=== PATIENT | female | born 1935 | race African-American/Black ===

== ENCOUNTER 2017-05-30 18:50 | Inpatient (IN) | payer BC, MEDICARE ==
[~2017-05-30] VITALS: Ht 157.5 cm; Wt 46.7 kg
[2017-05-30] MEDS ORDERED: SODIUM CHLORIDE 0.9% 1,000 ML IV ONE (21:22)
[2017-05-30] MEDS ORDERED: ONDANSETRON HCL 4MG/2ML VIAL IV STA (21:22)
[2017-05-30] MEDS ORDERED: MORPHINE SULFATE 4 MG/ML CPJ (NOT FOR IM USE) IV STA (21:22)
[2017-05-30 21:55] LABS: EOSINOPHILS % 0.2 % (0.0-5.0); HEMATOCRIT. 35.6 % (36.0-48.0); HEMOGLOBIN. 12.1 g/dL (12.0-16.0); LYMPHOCYTES % 12.3 % (20.0-50.0); MEAN CORPUSCULAR HEMOGLOBIN 30.5 pg (28.0-32.0); MEAN CORPUSCULAR VOLUME 90.1 fL (81.0-99.0); MEAN PLATELET VOLUME 10.2 fl (7.4-10.4); MONOCYTES % 9.9 % (2.0-8.0); NEUTROPHILS % 76.6 % (40.0-76.0); PLATELET 220 x1000/uL (130-400); RED BLOOD CELL COUNT 3.95 mill/uL (4.2-5.4)
[2017-05-30 21:59] LABS: INR 1.1; PARTIAL THROMBOPLASTIN TIME 27.9 sec (23.4-31.0); PROTHROMBIN TIME 11.9 sec (9.4-11.6)
[2017-05-30 22:02] LABS: CARBON DIOXIDE 28 mEq/L (21-32); CHLORIDE 91 mEq/L (98-107)
[2017-05-30] MEDS ORDERED: POTA10TA15 PO (22:28)
[2017-05-30] MEDS ORDERED: AMLO5TAB4 PO (22:28)
[2017-05-30] MEDS ORDERED: TRIA1TAB92 PO (22:28)
[2017-05-30] MEDS ORDERED: ALPR0.5T PO (22:28)
[2017-05-30] MEDS ORDERED: TRAM50TA3 PO (22:28)
[2017-05-30] MEDS ORDERED: MORPHINE SULFATE 10 MG/ML CPJ IV NR (22:30)
[2017-05-30] MEDS ORDERED: CEFTRIAXONE 1 G PREMIX 50 ML IV ONE (23:30)
[2017-05-31 01:26] LABS: CLARITY URINE CLOUDY (CLEAR); COLOR URINE YELLOW (YELLOW); GLUCOSE URINE NEGATIVE (NEGATIVE); KETONES URINE NEGATIVE (NEGATIVE); LEUKOCYTE ESTERASE URINE 3+ (NEGATIVE); NITRITE URINE NEGATIVE (NEGATIVE); OCCULT BLOOD URINE 2+ (NEGATIVE); PH URINE 6.5 (4.5-8.0); PROTEIN URINE 1+ (NEGATIVE); SPECIFIC GRAVITY URINE 1.013 (1.005-1.030); UROBILINOGEN URINE 0.2 E.U./dL (0.2-1.0)
[2017-05-31 05:21] VITALS: BP 113/70
[2017-05-31 08:00] VITALS: BP 117/73
[2017-05-31] MEDS ORDERED: SODIUM CHLORIDE 0.9% 1,000 ML IV SCH (09:00)
[2017-05-31] MEDS: ENOXAPARIN 30MG/0.3ML SYR SUBCUT SCH (09:15)
[2017-05-31 09:49] LABS: HEMATOCRIT 29.6 % (36.0-48.0); HEMOGLOBIN 9.7 g/dL (12.0-16.0); MEAN CORPUSCULAR HEMOGLOBIN 29.8 pg (28.0-32.0); MEAN CORPUSCULAR VOLUME 90.9 fL (81.0-99.0); PLATELET 163 x1000/uL (130-400); RED BLOOD CELL COUNT 3.26 mill/uL (4.2-5.4)
[2017-05-31] MEDS ORDERED: LACTULOSE 20G/30ML UDC PO PRN (10:30)
[2017-05-31 12:00] VITALS: BP 103/63
[2017-05-31 12:23] VITALS: BP 120/66
[2017-05-31] MEDS: SODIUM CHLORIDE 0.9% 1,000 ML IV SCH (15:30)
[2017-05-31] MEDS: CEFTRIAXONE 1 G PREMIX 50 ML IV SCH (15:36)
[2017-05-31 15:55] LABS: *AMPHETAMINES SCREEN URINE NEGATIVE (NEGATIVE); *BARBITURATES SCREEN URINE NEGATIVE (NEGATIVE); *BENZODIAZEPINES SCREEN URINE PRESUMTIVE POSITIVE (NEGATIVE); *COCAINE SCREEN URINE NEGATIVE (NEGATIVE); CANNABINOID URINE SCREEN NEGATIVE (NEGATIVE); METHADONE URINE SCREEN NEGATIVE (NEGATIVE); OPIATES URINE SCREEN PRESUMTIVE POSITIVE (NEGATIVE); PHENCYCLIDINE URINE SCREEN NEGATIVE (NEGATIVE)
[2017-05-31 16:00] VITALS: BP 95/69
[2017-05-31 16:55] LABS: CREATINE KINASE 90 IU/L (26-192)
[2017-05-31 20:00] VITALS: BP 109/60
[2017-05-31 22:17] LABS: TOTAL IRON BINDING CAPACITY 179 ug/dL (250-450)
[2017-05-31 22:38] LABS: HAPTOGLOBIN 220 mg/dL (30-200)
[2017-05-31 22:45] LABS: VITAMIN B12 SERUM 1226 pg/mL (211-911)
[2017-05-31 23:01] LABS: FERRITIN 214 ng/mL (10-291)
[2017-06-01] VITALS (13 sets, daily range): BP systolic 99–137; BP diastolic 60–80
[2017-06-01] MEDS: SODIUM CHLORIDE 0.9% 1,000 ML IV SCH ×3 (02:51→20:40)
[2017-06-01 06:21] LABS: BASOPHILS % 1.2 % (0.0-2.0); EOSINOPHILS % 1.7 % (0.0-5.0); HEMATOCRIT. 28.5 % (36.0-48.0); HEMOGLOBIN. 9.5 g/dL (12.0-16.0); LYMPHOCYTES % 12.4 % (20.0-50.0); MEAN CORPUSCULAR HEMOGLOBIN 30.9 pg (28.0-32.0); MEAN CORPUSCULAR VOLUME 92.2 fL (81.0-99.0); MEAN PLATELET VOLUME 10.5 fl (7.4-10.4); MONOCYTES % 9.7 % (2.0-8.0); PLATELET 156 x1000/uL (130-400); RED BLOOD CELL COUNT 3.09 mill/uL (4.2-5.4); RED CELL DISTRIBUTION WIDTH 15.2 % (11.6-14.6)
[2017-06-01 06:52] LABS: HEPATITIS B SURFACE ANTIGEN NEGATIVE
[2017-06-01 07:20] LABS: HEPATITIS B CORE AB IGM NEGATIVE
[2017-06-01] MEDS ORDERED: LIDOCAINE HCL 1% 20ML VIAL (Pyxis) INJ ONE (07:38)
[2017-06-01] MEDS ORDERED: SODIUM BICARBONATE 4% (2.4MEQ) 5ML VIAL IV ONE (07:38)
[2017-06-01 08:33] LABS: AMYLASE 42 IU/L (25-115); CARBON DIOXIDE 22 mEq/L (21-32); CHLORIDE 103 mEq/L (98-107)
[2017-06-01] MEDS ORDERED: FENTANYL CITRATE/PF 50MCG/ML 2ML VIAL ONE (08:45)
[2017-06-01] MEDS ORDERED: FENTANYL CITRATE/PF 50MCG/ML 2ML VIAL IV ONE (09:15)
[2017-06-01 09:58] LABS: HEMATOCRIT 30.2 % (36.0-48.0)
[2017-06-01 10:12] LABS: ALPHA FETOPROTEIN TUMOR MARKER 1.2 ng/mL (0.0-8.3)
[2017-06-01 10:39] LABS: HEMATOCRIT 30.7 % (36.0-48.0); HEMOGLOBIN 10.2 g/dL (12.0-16.0); MEAN CORPUSCULAR HEMOGLOBIN 30.6 pg (28.0-32.0); MEAN CORPUSCULAR VOLUME 91.8 fL (81.0-99.0); PLATELET 180 x1000/uL (130-400); RED BLOOD CELL COUNT 3.34 mill/uL (4.2-5.4); RED CELL DISTRIBUTION WIDTH 15.2 % (11.6-14.6)
[2017-06-01] MEDS ORDERED: MAGNESIUM/ALUMINUM HYDROXIDE/SIMETHICONE 30ML UDC PO PRN (12:15)
[2017-06-01] MEDS ORDERED: ONDANSETRON HCL 4MG/2ML VIAL IV PRN (14:30)
[2017-06-01] MEDS: CEFTRIAXONE 1 G PREMIX 50 ML IV SCH (14:57)
[2017-06-01 14:59] LABS: HEPATITIS A AB IGM NEGATIVE (NEGATIVE)
[2017-06-02] VITALS (7 sets, daily range): BP systolic 115–136; BP diastolic 61–79
[2017-06-02 06:09] LABS: CHLORIDE 107 mEq/L (98-107)
[2017-06-02 06:19] LABS: AMYLASE 39 IU/L (25-115); CARBON DIOXIDE 21 mEq/L (21-32)
[2017-06-02 06:29] LABS: EOSINOPHILS % 0.7 % (0.0-5.0); HEMATOCRIT. 23.9 % (36.0-48.0); HEMOGLOBIN. 8.1 g/dL (12.0-16.0); LYMPHOCYTES % 11.9 % (20.0-50.0); MEAN CORPUSCULAR HEMOGLOBIN 30.9 pg (28.0-32.0); MEAN CORPUSCULAR VOLUME 91.1 fL (81.0-99.0); MEAN PLATELET VOLUME 10.5 fl (7.4-10.4); MONOCYTES % 9.5 % (2.0-8.0); NEUTROPHILS % 76.9 % (40.0-76.0); PLATELET 144 x1000/uL (130-400); RED BLOOD CELL COUNT 2.63 mill/uL (4.2-5.4)
[2017-06-02] MEDS: SODIUM CHLORIDE 0.9% 1,000 ML IV SCH ×2 (06:40→17:05)
[2017-06-02] MEDS: ENOXAPARIN 30MG/0.3ML SYR SUBCUT SCH (09:00)
[2017-06-02] MEDS: CEFTRIAXONE 1 G PREMIX 50 ML IV SCH (13:54)
[2017-06-02] MEDS: PANTOPRAZOLE SODIUM 40 MG/VIAL IV SCH (21:54)
[2017-06-03 04:18] VITALS: BP 129/74
[2017-06-03 06:00] LABS: BASOPHILS % 1.1 % (0.0-2.0); EOSINOPHILS % 2.6 % (0.0-5.0); HEMATOCRIT. 24.1 % (36.0-48.0); HEMOGLOBIN. 7.9 g/dL (12.0-16.0); LYMPHOCYTES % 13.3 % (20.0-50.0); MEAN CORPUSCULAR VOLUME 91.3 fL (81.0-99.0); MEAN PLATELET VOLUME 10.1 fl (7.4-10.4); MONOCYTES % 9.6 % (2.0-8.0); NEUTROPHILS % 73.4 % (40.0-76.0); PLATELET 158 x1000/uL (130-400); RED BLOOD CELL COUNT 2.64 mill/uL (4.2-5.4); RED CELL DISTRIBUTION WIDTH 15.3 % (11.6-14.6)
[2017-06-03] MEDS: SODIUM CHLORIDE 0.9% 1,000 ML IV SCH ×3 (06:32→23:30)
[2017-06-03 07:05] LABS: PHOSPHORUS 2.8 mg/dL (2.5-4.9)
[2017-06-03 07:16] LABS: INR 1.2; PARTIAL THROMBOPLASTIN TIME 34.1 sec (23.4-31.0); PROTHROMBIN TIME 12.9 sec (9.4-11.6)
[2017-06-03 08:52] VITALS: BP 118/58
[2017-06-03] MEDS: PANTOPRAZOLE SODIUM 40 MG/VIAL IV SCH ×2 (09:46→20:29)
[2017-06-03] MEDS ORDERED: MIDAZOLAM HCL 5 MG/5 ML VIAL ONE (10:11)
[2017-06-03] MEDS ORDERED: FENTANYL CITRATE/PF 50MCG/ML 2ML VIAL ONE (10:11)
[2017-06-03] MEDS ORDERED: MIDAZOLAM HCL 5 MG/5 ML VIAL IV PRN (10:43)
[2017-06-03] MEDS: MAGNESIUM 2 G PREMIX 50 ML IV SCH ×2 (10:50→18:21)
[2017-06-03] MEDS ORDERED: SIMETHICONE 40 MG/0.6 ML 30ML ONE (10:53)
[2017-06-03] MEDS ORDERED: SODIUM CHLORIDE 0.9% 10ML VIAL ONE (10:53)
[2017-06-03 12:47] VITALS: BP 140/73
[2017-06-03] MEDS ORDERED: SORBITOL 70% SOLN 30ML PO SCH ×2 (16:00→20:00)
[2017-06-03 16:24] VITALS: BP 128/63
[2017-06-03] MEDS: CEFTRIAXONE 1 G PREMIX 50 ML IV SCH (18:20)
[2017-06-03 20:00] VITALS: BP 141/92
[2017-06-03 23:47] VITALS: BP 119/81
[2017-06-04 05:00] VITALS: BP 123/69
[2017-06-04 06:34] LABS: INR 1.3; PARTIAL THROMBOPLASTIN TIME 26.5 sec (23.4-31.0); PROTHROMBIN TIME 13.1 sec (9.4-11.6)
[2017-06-04 07:01] LABS: BASOPHILS % 0.7 % (0.0-2.0); EOSINOPHILS % 0.1 % (0.0-5.0); HEMATOCRIT. 29.7 % (36.0-48.0); HEMOGLOBIN. 9.9 g/dL (12.0-16.0); LYMPHOCYTES % 8.7 % (20.0-50.0); MEAN CORPUSCULAR HEMOGLOBIN 30.7 pg (28.0-32.0); MEAN CORPUSCULAR VOLUME 92.4 fL (81.0-99.0); MEAN PLATELET VOLUME 10.2 fl (7.4-10.4); MONOCYTES % 5.2 % (2.0-8.0); NEUTROPHILS % 85.3 % (40.0-76.0); PLATELET 219 x1000/uL (130-400); RED BLOOD CELL COUNT 3.22 mill/uL (4.2-5.4); RED CELL DISTRIBUTION WIDTH 15.8 % (11.6-14.6)
[2017-06-04 07:21] LABS: PHOSPHORUS 3.6 mg/dL (2.5-4.9)
[2017-06-04 08:00] VITALS: BP 127/80
[2017-06-04] MEDS: PANTOPRAZOLE SODIUM 40 MG/VIAL IV SCH ×2 (08:08→22:11)
[2017-06-04] MEDS: SODIUM CHLORIDE 0.9% 1,000 ML IV SCH (08:11)
[2017-06-04] MEDS ORDERED: SODIUM CHLORIDE 0.9% 10ML VIAL ONE (10:48)
[2017-06-04] MEDS ORDERED: SIMETHICONE 40 MG/0.6 ML 30ML ONE (10:48)
[2017-06-04 12:00] VITALS: BP 123/66
[2017-06-04] MEDS: SODIUM CHLORIDE 0.45% 1,000 ML IV SCH (15:01)
[2017-06-04] MEDS: CEFTRIAXONE 1 G PREMIX 50 ML IV SCH (15:01)
[2017-06-04 16:00] VITALS: BP 149/84
[2017-06-04] MEDS ORDERED: MIDAZOLAM HCL 5 MG/5 ML VIAL ONE (17:12)
[2017-06-04] MEDS ORDERED: FENTANYL CITRATE/PF 50MCG/ML 2ML VIAL ONE (17:12)
[2017-06-04] MEDS ORDERED: MIDAZOLAM HCL 2 MG/2 ML VIAL IV PRN (17:15)
[2017-06-04 20:00] VITALS: BP 143/61
[2017-06-05 00:11] VITALS: BP 129/60
[2017-06-05] MEDS: SODIUM CHLORIDE 0.45% 1,000 ML IV SCH ×3 (00:15→10:15)
[2017-06-05 04:00] VITALS: BP 131/59
[2017-06-05 05:57] LABS: EOSINOPHILS % 2.2 % (0.0-5.0); HEMATOCRIT. 23.5 % (36.0-48.0); HEMOGLOBIN. 7.7 g/dL (12.0-16.0); LYMPHOCYTES % 13.6 % (20.0-50.0); MEAN CORPUSCULAR HEMOGLOBIN 30.1 pg (28.0-32.0); MEAN CORPUSCULAR VOLUME 92.3 fL (81.0-99.0); NEUTROPHILS % 75.2 % (40.0-76.0); PLATELET 152 x1000/uL (130-400); RED BLOOD CELL COUNT 2.54 mill/uL (4.2-5.4)
[2017-06-05 08:15] VITALS: BP 127/59
[2017-06-05] MEDS: PANTOPRAZOLE SODIUM 40 MG/VIAL IV SCH ×2 (09:37→21:25)
[2017-06-05 12:10] VITALS: BP 151/63
[2017-06-05] MEDS: CEFTRIAXONE 1 G PREMIX 50 ML IV SCH (14:39)
[2017-06-05 16:10] VITALS: BP 127/61
[2017-06-05 16:40] LABS: CLARITY URINE CLOUDY (CLEAR); COLOR URINE DARK YELLOW (YELLOW); GLUCOSE URINE NEGATIVE (NEGATIVE); KETONES URINE NEGATIVE (NEGATIVE); LEUKOCYTE ESTERASE URINE 2+ (NEGATIVE); NITRITE URINE NEGATIVE (NEGATIVE); OCCULT BLOOD URINE 3+ (NEGATIVE); PROTEIN URINE 1+ (NEGATIVE); SPECIFIC GRAVITY URINE 1.016 (1.005-1.030); UROBILINOGEN URINE 0.2 E.U./dL (0.2-1.0)
[2017-06-05 20:00] VITALS: BP 122/63
[2017-06-06] VITALS: BP 125/62
[2017-06-06 04:00] VITALS: BP 132/59
[2017-06-06] MEDS: SODIUM CHLORIDE 0.45% 1,000 ML IV SCH ×2 (04:17→06:15)
[2017-06-06 06:25] LABS: EOSINOPHILS % 2.6 % (0.0-5.0); HEMATOCRIT. 22.8 % (36.0-48.0); HEMOGLOBIN. 7.6 g/dL (12.0-16.0); LYMPHOCYTES % 12.7 % (20.0-50.0); MEAN CORPUSCULAR HEMOGLOBIN 30.9 pg (28.0-32.0); MEAN CORPUSCULAR VOLUME 92.3 fL (81.0-99.0); MEAN PLATELET VOLUME 9.8 fl (7.4-10.4); MONOCYTES % 9.4 % (2.0-8.0); NEUTROPHILS % 74.3 % (40.0-76.0); PLATELET 147 x1000/uL (130-400); RED BLOOD CELL COUNT 2.47 mill/uL (4.2-5.4); RED CELL DISTRIBUTION WIDTH 16.3 % (11.6-14.6)
[2017-06-06 08:15] VITALS: BP 130/73
[2017-06-06] MEDS: PANTOPRAZOLE SODIUM 40 MG/VIAL IV SCH (09:26)
[2017-06-06 12:44] VITALS: BP 128/71
[2017-06-06] MEDS ORDERED: ATORVASTATIN CALCIUM 10MG TABLET PO SCH (13:00)
[2017-06-06] MEDS: CEFTRIAXONE 1 G PREMIX 50 ML IV SCH (14:48)
[2017-06-06 16:20] VITALS: BP 132/63
[2017-06-06 16:41] VITALS: BP 132/63
[2017-06-06] MEDS ORDERED: DRONABINOL 2.5MG CAPSULE PO SCH (17:00)
== END 2017-06-06 19:05 | disposition home health service (06) | DRG 374 ==
LOC: ER 18:50 → CANRESERV 23:37 → ENRESERV 23:37 → 6WST 05-31 00:21 → EDBEDREQ 05-31 00:24 → EDBEDREQTM 05-31 00:24 → ENRESERV 05-31 04:04
PROVIDERS: ADMIT Internal Medicine; ATTEND Internal Medicine
PROC: 0FB03ZX Excision of Liver, Percutaneous Approach, Diagnostic (ICD-10-PCS; 2017-06-01)
PROC: 0DB68ZX Excision of Stomach, Via Natural or Artificial Opening Endoscopic, Diagnostic (ICD-10-PCS; principal; 2017-06-03 10:00)
PROC: 0DBK8ZX Excision of Ascending Colon, Via Natural or Artificial Opening Endoscopic, Diagnostic (ICD-10-PCS; 2017-06-04)
DX: C19 Malignant neoplasm of rectosigmoid junction (principal); K85.90 Acute pancreatitis without necrosis or infection, unspecified; N17.0 Acute kidney failure with tubular necrosis; E87.0 Hyperosmolality and hypernatremia; D68.9 Coagulation defect, unspecified; C78.7 Secondary malignant neoplasm of liver and intrahepatic bile duct; E87.1 Hypo-osmolality and hyponatremia; E88.09 Other disorders of plasma-protein metabolism, not elsewhere classified; D63.8 Anemia in other chronic diseases classified elsewhere; N39.0 Urinary tract infection, site not specified; Z68.1 Body mass index [BMI] 19.9 or less, adult; E86.1 Hypovolemia; D12.5 Benign neoplasm of sigmoid colon; D25.9 Leiomyoma of uterus, unspecified; J44.9 Chronic obstructive pulmonary disease, unspecified; I12.9 Hypertensive chronic kidney disease with stage 1 through stage 4 chronic kidney disease, or unspecified chronic kidney disease; K44.9 Diaphragmatic hernia without obstruction or gangrene; N18.9 Chronic kidney disease, unspecified; Z82.49 Family history of ischemic heart disease and other diseases of the circulatory system; R63.4 Abnormal weight loss; Z79.899 Other long term (current) drug therapy; D50.9 Iron deficiency anemia, unspecified; K29.70 Gastritis, unspecified, without bleeding; R16.0 Hepatomegaly, not elsewhere classified
CPT/HCPCS: 36415; 71010; 74176; 76700; 76942; 80048; 80053; 80061; 80076; 80305; 81001; 82105; 82150; 82270; 82378; 82550; 82607; 82728; 82962; 83010; 83540; 83550; 83615; 83690; 83735; 84100; 84443; 84484; 85014; 85018; 85025; 85027; 85044; 85384; 85610; 85651; 85730; 86301; 86705; 86709; 86803; 86850; 86900; 87077; 87086; 87186; 87340; 88304; 88305; 88307; 88312; 88313; 93005; 93970; 96361; 96365; 96375; 99152; 99285; A4216; A6261; C1893; C9113; J0696; J1650; J2250; J2270; J2405; J3010; J3475; J3490; J7030